=== PATIENT | female | born 1975 | race Caucasian/White ===

== ENCOUNTER 2017-03-16 19:26 | Inpatient (IN) | payer MEDICARE, OTHER ==
[~2017-03-16] VITALS: Ht 152.4 cm; Wt 80.5 kg
[2017-03-16] MEDS ORDERED: ACETAMINOPHEN 325 MG TAB PO ONE ×3 (19:45→22:45)
[2017-03-16 20:22] LABS: CONDITION Y; DEFINITIVE SEE PRINTOUT; Hematocrit 26.5 % (36.0-46.0); Hemoglobin 8.9 g/dL (12.2-16.2); Mean Corpuscular Hemoglobin 29.5 pg (28.0-32.0); Mean Corpuscular Hgb Conc. 33.6 g/dL (32.0-36.0); Mean Corpuscular Volume 87.7 fL (80.0-100.0); Mean Platelet Volume 9.2 fL (7.4-10.4); Platelet Count (auto) 437 10^3/uL (140-450); SUSPECT SEE PRINTOUT
[2017-03-16 20:38] LABS: White Blood Cell 32.5 10^3/uL (4.4-10.8)
[2017-03-16 20:39] LABS: Metamyelocytes % 0; Myelocytes % 0; Promyelocytes % 0; Reactive Lymphocytes 0
[2017-03-16 20:46] LABS: Lactic Acid w/Reflex 2.1 mmol/L (0.4-2.0)
[2017-03-16 21:02] LABS: REFLEX LACTIC ACID YES OR NO YES
[2017-03-16 21:07] LABS: Albumin 2.5 g/dL (3.4-5.0); BUN/Creatinine Ratio 3.4; Calcium 7.8 mg/dL (8.5-10.1); Magnesium 1.8 mg/dL (1.6-2.6); Potassium 3.8 mmol/L (3.5-5.1)
[2017-03-16 21:14] LABS: Bilirubin, Total 0.6 mg/dL (0.2-1.0); Total Protein 7.3 g/dL (6.4-8.2)
[2017-03-16 21:26] LABS: Platelet Estimate Adequate
[2017-03-16] MEDS ORDERED: NITROGLYCERIN 0.4 MG SL TAB SL PRN (23:15)
[2017-03-16] MEDS ORDERED: VANCOMYCIN PER PHARMACY 0 MG IV SCH (23:15)
[2017-03-16] MEDS ORDERED: metroNIDAZOLE 500MG/100ML 100 ML IV ONE (23:15)
[2017-03-16] MEDS ORDERED: ALBUMIN 5% 250 ML IV ONE (23:15)
[2017-03-16] MEDS ORDERED: HYDROcodone-ACET 5/325MG TAB PO PRN (23:15)
[2017-03-16] MEDS ORDERED: MORPHINE SULF INJ 2 MG/ML SYRINGE 1ML IV PRN (23:15)
[2017-03-17] VITALS (8 sets, daily range): BP systolic 99–110; BP diastolic 56–61
[2017-03-17] MEDS ORDERED: VANCOMYCIN 1GM/250ML D5W 250 ML IV ONE
[2017-03-17] MEDS ORDERED: ACET-1156 PO (02:24)
[2017-03-17] MEDS ORDERED: ASPI325T4 PO (02:24)
[2017-03-17] MEDS ORDERED: DOCU-94 PO (02:25)
[2017-03-17] MEDS: ACETAMINOPHEN 325 MG TAB PO PRN (02:59)
[2017-03-17 05:54] LABS: CONDITION Y; DEFINITIVE SEE PRINTOUT; Hematocrit 22.6 % (36.0-46.0); Hemoglobin 7.7 g/dL (12.2-16.2); Mean Corpuscular Hemoglobin 30.1 pg (28.0-32.0); Mean Corpuscular Volume 88.6 fL (80.0-100.0); Mean Platelet Volume 9.5 fL (7.4-10.4); Platelet Count (auto) 373 10^3/uL (140-450); Red Cell Distribution Width 18.2 % (11.6-16.0); SUSPECT SEE PRINTOUT; White Blood Cell 26.5 10^3/uL (4.4-10.8)
[2017-03-17] MEDS: metroNIDAZOLE 500MG/100ML 100 ML IV SCH ×3 (06:08→22:05)
[2017-03-17 06:11] LABS: Albumin 2.5 g/dL (3.4-5.0); Bilirubin, Total 0.5 mg/dL (0.2-1.0); Calcium 8.2 mg/dL (8.5-10.1); Potassium 3.6 mmol/L (3.5-5.1); Total Protein 6.7 g/dL (6.4-8.2)
[2017-03-17 07:24] LABS: Metamyelocytes % 0; Myelocytes % 0; Promyelocytes % 0; Reactive Lymphocytes 0
[2017-03-17] MEDS: SEVELAMER 800 MG TAB PO SCH ×3 (09:03→18:12)
[2017-03-17] MEDS: PANTOPRAZOLE SODIUM 40 MG/10 ML VIAL IV SCH (09:03)
[2017-03-17] MEDS: METOPROLOL TARTRATE 50 MG TAB PO SCH ×2 (09:04→22:05)
[2017-03-17 09:20] LABS: Platelet Estimate Adequate
[2017-03-17] MEDS ORDERED: NIFEdipine ER 30 MG TAB PO SCH (10:00)
[2017-03-17] MEDS ORDERED: hydrALAZINE HCL 25 MG TAB PO SCH (10:00)
[2017-03-17] MEDS ORDERED: ENOXAPARIN SOD 30 MG/0.3 ML SYRINGE SC SCH (10:00)
[2017-03-17] MEDS ORDERED: PIPERACILLIN-TAZOB 2.25GM 50 ML IV ONE (13:30)
[2017-03-17] MEDS: SODIUM CHLORIDE 0.9% 1,000 ML IV SCH (13:30)
[2017-03-17 14:26] LABS: INR 1.15 (0.9-1.15); Partial Thromboplastin Time 30.1 sec (22.64-33.71)
[2017-03-17 14:34] LABS: Prothrombin Time 12.5 sec (9.37-12.3)
[2017-03-17] MEDS: ONDANSETRON HCL 4 MG/2 ML VIAL IV PRN (16:29)
[2017-03-17] MEDS: MORPHINE SULF INJ 2 MG/ML SYRINGE 1ML IV PRN ×2 (16:29→22:16)
[2017-03-17] MEDS: PIPERACILLIN-TAZOB 2.25GM 50 ML IV SCH (22:05)
[2017-03-17 22:27] LABS: Urine Bilirubin Negative (Negative); Urine Blood TRACE /uL (Negative); Urine Color Yellow (Yellow); Urine Glucose Normal (Normal); Urine Ketone Negative (Negative); Urine Mucus FEW (None Seen); Urine Nitrite Negative (Negative); Urine RBC 7 /hpf (0 - 4); Urine Squamous Epithelial Cell MOD /hpf (<5); Urine Urobilinogen Normal (Negative); Urine pH 8.5 (5.0-8.0)
[2017-03-18 05:26] VITALS: BP 103/57
[2017-03-18] MEDS: metroNIDAZOLE 500MG/100ML 100 ML IV SCH (05:32)
[2017-03-18] MEDS: SODIUM CHLORIDE 0.9% 1,000 ML IV SCH ×2 (05:32→22:57)
[2017-03-18 06:20] LABS: CONDITION Y; DEFINITIVE SEE PRINTOUT; Hematocrit 22.3 % (36.0-46.0); Hemoglobin 7.5 g/dL (12.2-16.2); Mean Corpuscular Hemoglobin 29.6 pg (28.0-32.0); Mean Corpuscular Hgb Conc. 33.4 g/dL (32.0-36.0); Mean Corpuscular Volume 88.6 fL (80.0-100.0); Mean Platelet Volume 9.7 fL (7.4-10.4); Platelet Count (auto) 394 10^3/uL (140-450); Red Cell Distribution Width 18.3 % (11.6-16.0); SUSPECT SEE PRINTOUT; White Blood Cell 28.9 10^3/uL (4.4-10.8)
[2017-03-18 06:52] LABS: BUN/Creatinine Ratio 5.3; Calcium 8.3 mg/dL (8.5-10.1); Metamyelocytes % 0; Myelocytes % 0; Potassium 4.1 mmol/L (3.5-5.1); Promyelocytes % 0; Reactive Lymphocytes 0
[2017-03-18 06:53] LABS: Albumin 2.5 g/dL (3.4-5.0); Bilirubin, Total 0.5 mg/dL (0.2-1.0); Total Protein 6.9 g/dL (6.4-8.2)
[2017-03-18] MEDS: SEVELAMER 800 MG TAB PO SCH ×3 (07:39→18:00)
[2017-03-18] MEDS: HEPARIN SODIUM (PORCINE) 5000 UNITS/ML 1ML VIAL SC SCH ×2 (07:40→22:48)
[2017-03-18 09:00] VITALS: BP 110/62
[2017-03-18] MEDS ORDERED: VANCOMYCIN 1GM/250ML D5W 250 ML IV ONE (09:00)
[2017-03-18 09:16] LABS: Platelet Estimate Adequate
[2017-03-18] MEDS: ONDANSETRON HCL 4 MG/2 ML VIAL IV PRN ×3 (09:36→23:12)
[2017-03-18] MEDS: MORPHINE SULF INJ 2 MG/ML SYRINGE 1ML IV PRN ×3 (09:36→22:58)
[2017-03-18] MEDS: METOPROLOL TARTRATE 50 MG TAB PO SCH ×2 (09:47→22:48)
[2017-03-18] MEDS: PANTOPRAZOLE SODIUM 40 MG/10 ML VIAL IV SCH (09:47)
[2017-03-18] MEDS: PIPERACILLIN-TAZOB 2.25GM 50 ML IV SCH ×2 (09:47→22:47)
[2017-03-18] MEDS ORDERED: EPOETIN ALFA 10,000 UNIT/1 ML VIAL IV ONE (10:45)
[2017-03-18] MEDS ORDERED: MIDAZOLAM HCL 1MG/1ML-2 ML VIAL ONE (13:30)
[2017-03-18] MEDS ORDERED: PROPOFOL 10 MG/ML 20 ML IV ONE (13:31)
[2017-03-18] MEDS ORDERED: ROCURONIUM 10MG/ML 10ML VIAL IV ONE (13:31)
[2017-03-18] MEDS ORDERED: fentaNYL CITRATE 100 MCG/2 ML VL ONE (14:02)
[2017-03-18] MEDS ORDERED: METOCLOPRAMIDE HCL 5MG/ml INJ 2ml VIAL ONE (14:24)
[2017-03-18] MEDS ORDERED: DEXAMETHASONE SOD PHOS 10MG/1ML VIAL INJ ONE (14:24)
[2017-03-18] MEDS ORDERED: ONDANSETRON HCL 4 MG/2 ML VIAL ONE (14:24)
[2017-03-18] MEDS ORDERED: hydrALAZINE HCL 20 MG/ML VL IV PRN (14:45)
[2017-03-18] MEDS ORDERED: HYDROmorphone HCL 2 MG/ML VL IV PRN (14:45)
[2017-03-18] MEDS ORDERED: NEOSTIGMINE 1 MG/ML INJ (10mg/10ML VIAL) ONE (14:57)
[2017-03-18] MEDS ORDERED: GLYCOPYRROLATE 0.2 MG/ML 1ML VIAL ONE ×2 (14:57→14:59)
[2017-03-18] MEDS: fentaNYL CITRATE 100 MCG/2 ML VL IV PRN ×4 (15:22→15:57)
[2017-03-18 22:21] VITALS: BP 145/79
[2017-03-19] VITALS (7 sets, daily range): BP systolic 148–170; BP diastolic 92–109
[2017-03-19 06:32] LABS: CONDITION Y; DEFINITIVE SEE PRINTOUT; Hematocrit 22.9 % (36.0-46.0); Hemoglobin 7.7 g/dL (12.2-16.2); Mean Corpuscular Hemoglobin 29.8 pg (28.0-32.0); Mean Corpuscular Hgb Conc. 33.7 g/dL (32.0-36.0); Mean Corpuscular Volume 88.4 fL (80.0-100.0); Mean Platelet Volume 9.9 fL (7.4-10.4); Platelet Count (auto) 338 10^3/uL (140-450); Red Cell Distribution Width 18.3 % (11.6-16.0); SUSPECT SEE PRINTOUT
[2017-03-19 06:45] LABS: Metamyelocytes % 0; Myelocytes % 0; Promyelocytes % 0; Reactive Lymphocytes 0
[2017-03-19 07:27] LABS: Albumin 2.2 g/dL (3.4-5.0); BUN/Creatinine Ratio 6.8; Bilirubin, Total 0.3 mg/dL (0.2-1.0); Calcium 8.5 mg/dL (8.5-10.1); Potassium 5.3 mmol/L (3.5-5.1); Total Protein 6.9 g/dL (6.4-8.2)
[2017-03-19] MEDS: SEVELAMER 800 MG TAB PO SCH ×3 (08:00→18:00)
[2017-03-19] MEDS ORDERED: EPOETIN ALFA 10,000 UNIT/1 ML VIAL IV ONE (08:00)
[2017-03-19 08:21] LABS: Platelet Estimate Adequate
[2017-03-19 08:22] LABS: Anisocytosis Slight; Burr Cells FEW; Ovalocytes FEW
[2017-03-19] MEDS: HEPARIN SODIUM (PORCINE) 5000 UNITS/ML 1ML VIAL SC SCH ×2 (10:00→22:17)
[2017-03-19] MEDS: PIPERACILLIN-TAZOB 2.25GM 50 ML IV SCH ×2 (11:08→22:15)
[2017-03-19] MEDS: PANTOPRAZOLE SODIUM 40 MG/10 ML VIAL IV SCH (13:42)
[2017-03-19] MEDS: METOPROLOL TARTRATE 50 MG TAB PO SCH ×2 (13:42→22:16)
[2017-03-19] MEDS: MORPHINE SULF INJ 2 MG/ML SYRINGE 1ML IV PRN (19:23)
[2017-03-19] MEDS ORDERED: VANCOMYCIN 1,250 MG in D5W 5% 250 ML IV ONE (20:00)
[2017-03-19] MEDS: ONDANSETRON HCL 4 MG/2 ML VIAL IV PRN (22:16)
[2017-03-20 05:16] VITALS: BP 155/97
[2017-03-20 05:43] LABS: CONDITION Y; DEFINITIVE SEE PRINTOUT; Hematocrit 23.4 % (36.0-46.0); Hemoglobin 7.8 g/dL (12.2-16.2); Mean Corpuscular Hemoglobin 29.2 pg (28.0-32.0); Mean Corpuscular Hgb Conc. 33.3 g/dL (32.0-36.0); Mean Corpuscular Volume 87.8 fL (80.0-100.0); Mean Platelet Volume 9.4 fL (7.4-10.4); Platelet Count (auto) 429 10^3/uL (140-450); SUSPECT SEE PRINTOUT; White Blood Cell 18.4 10^3/uL (4.4-10.8)
[2017-03-20 05:58] LABS: Calcium 8.4 mg/dL (8.5-10.1)
[2017-03-20 06:00] LABS: Myelocytes % 0; Promyelocytes % 0; Reactive Lymphocytes 0
[2017-03-20 06:21] LABS: BUN/Creatinine Ratio 7.9
[2017-03-20 06:26] LABS: Anisocytosis Slight; Metamyelocytes % 1; Platelet Estimate Adequate
[2017-03-20] MEDS: PIPERACILLIN-TAZOB 2.25GM 50 ML IV SCH ×2 (09:00→21:23)
[2017-03-20] MEDS: SEVELAMER 800 MG TAB PO SCH (09:00)
[2017-03-20] MEDS: PANTOPRAZOLE SODIUM 40 MG/10 ML VIAL IV SCH (09:00)
[2017-03-20] MEDS: METOPROLOL TARTRATE 50 MG TAB PO SCH ×2 (09:01→22:32)
[2017-03-20] MEDS: HEPARIN SODIUM (PORCINE) 5000 UNITS/ML 1ML VIAL SC SCH ×2 (09:07→21:27)
[2017-03-20] MEDS ORDERED: CLON0.3T PO (09:23)
[2017-03-20] MEDS ORDERED: LOSA50TA6 PO (09:23)
[2017-03-20] MEDS ORDERED: NIFE90TA30 PO (09:23)
[2017-03-20 09:53] VITALS: BP 164/104
[2017-03-20] MEDS ORDERED: cloNIDine HCL 0.1 MG TAB PO PRN ×2 (10:45)
[2017-03-20] MEDS: NIFEdipine ER 30 MG TAB PO SCH (11:37)
[2017-03-20] MEDS: ONDANSETRON HCL 4 MG/2 ML VIAL IV PRN (11:40)
[2017-03-20 14:19] VITALS: BP 148/92
[2017-03-20] MEDS: ACETAMINOPHEN 325 MG TAB PO SCH ×2 (15:38→21:23)
[2017-03-20 17:11] VITALS: BP 146/89
[2017-03-20 20:00] VITALS: BP 124/70
[2017-03-20 22:00] VITALS: BP 124/70
[2017-03-21] VITALS (7 sets, daily range): BP systolic 121–158; BP diastolic 62–84
[2017-03-21] MEDS: ACETAMINOPHEN 325 MG TAB PO SCH ×4 (05:49→21:36)
[2017-03-21 06:27] LABS: CONDITION Y; DEFINITIVE SEE PRINTOUT; Hematocrit 21.3 % (36.0-46.0); Hemoglobin 7.2 g/dL (12.2-16.2); Mean Corpuscular Hemoglobin 29.4 pg (28.0-32.0); Mean Corpuscular Hgb Conc. 33.8 g/dL (32.0-36.0); Platelet Count (auto) 362 10^3/uL (140-450); Red Cell Distribution Width 17.9 % (11.6-16.0); SUSPECT SEE PRINTOUT
[2017-03-21 06:32] LABS: Promyelocytes % 0; Reactive Lymphocytes 0
[2017-03-21 08:47] LABS: Metamyelocytes % 1; Myelocytes % 1; Platelet Estimate Adequate
[2017-03-21 08:49] LABS: Anisocytosis Slight; Large Platelets FEW
[2017-03-21] MEDS ORDERED: EPOETIN ALFA 10,000 UNIT/1 ML VIAL IV ONE (09:30)
[2017-03-21] MEDS ORDERED: HEPARIN 1,000 UNITS/ml 1ML VIAL IV ONE (09:30)
[2017-03-21 11:57] LABS: Phosphorus 3.1 mg/dL (2.5-4.90); Uric Acid 6.1 mg/dL (2.6-6.0)
[2017-03-21] MEDS: PIPERACILLIN-TAZOB 2.25GM 50 ML IV SCH ×2 (12:12→21:38)
[2017-03-21] MEDS: PANTOPRAZOLE SODIUM 40 MG/10 ML VIAL IV SCH (12:12)
[2017-03-21] MEDS: NIFEdipine ER 30 MG TAB PO SCH (12:13)
[2017-03-21] MEDS: METOPROLOL TARTRATE 50 MG TAB PO SCH ×2 (12:14→21:38)
[2017-03-21] MEDS: HEPARIN SODIUM (PORCINE) 5000 UNITS/ML 1ML VIAL SC SCH ×2 (12:28→21:31)
[2017-03-21] MEDS: PRO-STAT 64 30ML PO SCH (21:57)
[2017-03-22] VITALS (7 sets, daily range): BP systolic 122–159; BP diastolic 69–93
[2017-03-22] MEDS: ACETAMINOPHEN 325 MG TAB PO SCH ×4 (05:52→21:27)
[2017-03-22] MEDS: PRO-STAT 64 30ML PO SCH ×3 (06:00→21:34)
[2017-03-22 06:25] LABS: CONDITION Y; DEFINITIVE SEE PRINTOUT; Hematocrit 22.3 % (36.0-46.0); Hemoglobin 7.6 g/dL (12.2-16.2); Mean Corpuscular Hemoglobin 29.6 pg (28.0-32.0); Mean Corpuscular Hgb Conc. 34.2 g/dL (32.0-36.0); Mean Corpuscular Volume 86.6 fL (80.0-100.0); Mean Platelet Volume 9.1 fL (7.4-10.4); Platelet Count (auto) 419 10^3/uL (140-450); Red Cell Distribution Width 17.6 % (11.6-16.0); SUSPECT SEE PRINTOUT; White Blood Cell 16.3 10^3/uL (4.4-10.8)
[2017-03-22 06:37] LABS: Promyelocytes % 0; Reactive Lymphocytes 0
[2017-03-22 08:33] LABS: Metamyelocytes % 2; Myelocytes % 1; Platelet Estimate Adequate
[2017-03-22 08:34] LABS: Anisocytosis Slight; Large Platelets FEW
[2017-03-22] MEDS: PANTOPRAZOLE SODIUM 40 MG/10 ML VIAL IV SCH (10:14)
[2017-03-22] MEDS: HEPARIN SODIUM (PORCINE) 5000 UNITS/ML 1ML VIAL SC SCH ×2 (10:15→21:36)
[2017-03-22] MEDS: PIPERACILLIN-TAZOB 2.25GM 50 ML IV SCH ×2 (10:16→21:26)
[2017-03-22] MEDS: METOPROLOL TARTRATE 50 MG TAB PO SCH ×2 (10:17→21:25)
[2017-03-22] MEDS: NIFEdipine ER 30 MG TAB PO SCH (10:17)
[2017-03-22] MEDS ORDERED: DOCUSATE SOD 100 MG CAP PO PRN (15:00)
[2017-03-23 05:00] VITALS: BP 148/91
[2017-03-23 05:29] LABS: CONDITION Y; DEFINITIVE SEE PRINTOUT; Hematocrit 22.5 % (36.0-46.0); Hemoglobin 7.5 g/dL (12.2-16.2); Mean Corpuscular Hgb Conc. 33.1 g/dL (32.0-36.0); Mean Corpuscular Volume 87.6 fL (80.0-100.0); Mean Platelet Volume 9.1 fL (7.4-10.4); Platelet Count (auto) 477 10^3/uL (140-450); Red Cell Distribution Width 18.7 % (11.6-16.0); SUSPECT SEE PRINTOUT; White Blood Cell 16.3 10^3/uL (4.4-10.8)
[2017-03-23 05:37] LABS: Metamyelocytes % 0; Myelocytes % 0; Promyelocytes % 0; Reactive Lymphocytes 0
[2017-03-23] MEDS: PRO-STAT 64 30ML PO SCH ×3 (05:48→22:02)
[2017-03-23] MEDS: ACETAMINOPHEN 325 MG TAB PO SCH ×3 (06:02→22:01)
[2017-03-23 06:09] LABS: Platelet Estimate Increased
[2017-03-23 06:10] LABS: Anisocytosis Slight
[2017-03-23 08:00] VITALS: BP 155/86
[2017-03-23 08:02] LABS: Albumin 2.2 g/dL (3.4-5.0); BUN/Creatinine Ratio 6.2; Bilirubin, Total 0.3 mg/dL (0.2-1.0); Calcium 8.1 mg/dL (8.5-10.1); Potassium 4.1 mmol/L (3.5-5.1); Total Protein 6.6 g/dL (6.4-8.2)
[2017-03-23 09:00] VITALS: BP 155/66
[2017-03-23] MEDS: HEPARIN SODIUM (PORCINE) 5000 UNITS/ML 1ML VIAL SC SCH ×2 (09:42→22:10)
[2017-03-23] MEDS: PIPERACILLIN-TAZOB 2.25GM 50 ML IV SCH ×2 (09:43→22:02)
[2017-03-23] MEDS: PANTOPRAZOLE SODIUM 40 MG/10 ML VIAL IV SCH (09:43)
[2017-03-23] MEDS: NIFEdipine ER 30 MG TAB PO SCH (09:44)
[2017-03-23] MEDS: METOPROLOL TARTRATE 50 MG TAB PO SCH ×2 (09:44→22:11)
[2017-03-23] MEDS ORDERED: EPOETIN ALFA 10,000 UNIT/1 ML VIAL IV ONE (10:45)
[2017-03-23] MEDS ORDERED: SODIUM CHL 0.9% 1000 ML BAG XX ONE (10:45)
[2017-03-23 17:00] VITALS: BP 140/84
[2017-03-23 22:00] VITALS: BP 151/90
[2017-03-24 04:43] VITALS: BP 156/90
[2017-03-24] MEDS: ACETAMINOPHEN 325 MG TAB PO SCH ×3 (05:59→22:29)
[2017-03-24] MEDS: PRO-STAT 64 30ML PO SCH ×3 (05:59→22:26)
[2017-03-24 07:01] LABS: CONDITION Y; DEFINITIVE SEE PRINTOUT; Hematocrit 22.9 % (36.0-46.0); Hemoglobin 7.6 g/dL (12.2-16.2); Mean Corpuscular Hemoglobin 28.9 pg (28.0-32.0); Mean Corpuscular Hgb Conc. 33.3 g/dL (32.0-36.0); Mean Corpuscular Volume 86.8 fL (80.0-100.0); Platelet Count (auto) 622 10^3/uL (140-450); Red Cell Distribution Width 18.5 % (11.6-16.0); SUSPECT SEE PRINTOUT; White Blood Cell 17.5 10^3/uL (4.4-10.8)
[2017-03-24 07:12] LABS: Promyelocytes % 0; Reactive Lymphocytes 0
[2017-03-24 08:09] LABS: Giant Platelets Few; Large Platelets FEW; Platelet Clumps FEW; Platelet Estimate Increased
[2017-03-24 08:11] LABS: Metamyelocytes % 1; Myelocytes % 1
[2017-03-24 08:12] LABS: Hypochromia Slight
[2017-03-24 09:00] VITALS: BP 160/98
[2017-03-24] MEDS ORDERED: SODIUM CHL 0.9% 1000 ML BAG XX ONE (09:00)
[2017-03-24] MEDS ORDERED: EPOETIN ALFA 10,000 UNIT/1 ML VIAL IV ONE (09:00)
[2017-03-24] MEDS ORDERED: MORPHINE SULF INJ 2 MG/ML SYRINGE 1ML IV PRN (09:30)
[2017-03-24] MEDS ORDERED: HYDROcodone-ACET 5/325MG TAB PO PRN (09:30)
[2017-03-24] MEDS: NIFEdipine ER 30 MG TAB PO SCH ×2 (10:00→13:17)
[2017-03-24] MEDS: METOPROLOL TARTRATE 50 MG TAB PO SCH ×4 (10:00→22:26)
[2017-03-24] MEDS: HEPARIN SODIUM (PORCINE) 5000 UNITS/ML 1ML VIAL SC SCH ×2 (10:00→22:28)
[2017-03-24] MEDS: PIPERACILLIN-TAZOB 2.25GM 50 ML IV SCH ×2 (10:37→22:31)
[2017-03-24 13:00] VITALS: BP 155/92
[2017-03-24] MEDS: PANTOPRAZOLE SODIUM 40 MG/10 ML VIAL IV SCH (13:18)
[2017-03-24] MEDS ORDERED: metroNIDAZOLE 500MG/100ML 100 ML IV ONE (13:30)
[2017-03-24 15:09] VITALS: BP 160/95
[2017-03-24 17:00] VITALS: BP 179/101
[2017-03-24 22:00] VITALS: BP 128/80
[2017-03-24] MEDS ORDERED: METOPROLOL TARTRATE 50 MG TAB PO ONE (22:30)
[2017-03-24] MEDS: metroNIDAZOLE 500MG/100ML 100 ML IV SCH (22:34)
[2017-03-25] MEDS: metroNIDAZOLE 500MG/100ML 100 ML IV SCH ×2 (04:20→09:59)
[2017-03-25 05:00] VITALS: BP 151/87
[2017-03-25] MEDS: ACETAMINOPHEN 325 MG TAB PO SCH (06:49)
[2017-03-25] MEDS: PRO-STAT 64 30ML PO SCH (06:50)
[2017-03-25 07:28] LABS: Basophils # (auto) 0 uL; Basophils % (auto) 0.1 % (0.0-2.0); CONDITION Y; DEFINITIVE SEE PRINTOUT; Eosinophils # (auto) 0.3 uL; Eosinophils % (auto) 2.4 % (0.0-7.0); Hematocrit 22.2 % (36.0-46.0); Hemoglobin 7.4 g/dL (12.2-16.2); Lymphocytes # (auto) 1.4 uL; Lymphocytes % (auto) 9.4 % (10.0-50.0); Mean Corpuscular Hemoglobin 29.2 pg (28.0-32.0); Mean Corpuscular Hgb Conc. 33.4 g/dL (32.0-36.0); Mean Corpuscular Volume 87.6 fL (80.0-100.0); Mean Platelet Volume 8.8 fL (7.4-10.4); Monocytes # (auto) 0.8 uL; Monocytes % (auto) 5.5 % (0.0-12.0); Neutrophils # (auto) 11.9 uL; Neutrophils % (auto) 82.6 % (37.0-80.0); Platelet Count (auto) 632 10^3/uL (140-450); Red Cell Distribution Width 18.8 % (11.6-16.0); White Blood Cell 14.4 10^3/uL (4.4-10.8)
[2017-03-25 07:44] LABS: BUN/Creatinine Ratio 5.1; Calcium 8.3 mg/dL (8.5-10.1); Potassium 3.6 mmol/L (3.5-5.1)
[2017-03-25 08:07] LABS: Vitamin D-2 25-Hydroxy 2.3 ng/mL (.)
[2017-03-25 09:00] VITALS: BP 152/94
[2017-03-25] MEDS: PANTOPRAZOLE SODIUM 40 MG/10 ML VIAL IV SCH (09:57)
[2017-03-25] MEDS: PIPERACILLIN-TAZOB 2.25GM 50 ML IV SCH (09:58)
[2017-03-25] MEDS ORDERED: METOPROLOL TARTRATE 50 MG TAB PO SCH (10:00)
[2017-03-25] MEDS: HEPARIN SODIUM (PORCINE) 5000 UNITS/ML 1ML VIAL SC SCH (10:09)
[2017-03-25] MEDS ORDERED: EPOETIN ALFA 10,000 UNIT/1 ML VIAL IV ONE (11:15)
[2017-03-25] MEDS ORDERED: SODIUM CHL 0.9% 1000 ML BAG XX ONE (11:15)
[2017-03-25] MEDS: NIFEdipine ER 30 MG TAB PO SCH (11:18)
[2017-03-25] MEDS: ACETAMINOPHEN 325 MG TAB PO PRN (11:20)
[2017-03-25] MEDS ORDERED: DOCU100C8 PO (13:29)
[2017-03-25] MEDS ORDERED: LEVO500T21 PO (13:29)
[2017-03-25] MEDS ORDERED: METR500T PO (13:29)
[2017-03-25 13:32] VITALS: BP 145/89
== END 2017-03-25 15:34 | disposition home health service (06) | DRG 907 ==
LOC: EDBD 19:26 → ER 19:28 → TELE 19:29 → TELE-WESTW 03-17 00:27
PROVIDERS: ADMIT Internal Medicine; ATTEND Internal Medicine
PROC: 5A1D60Z (ICD-10-PCS; 2017-03-16)
PROC: 02HV33Z Insertion of Infusion Device into Superior Vena Cava, Percutaneous Approach (ICD-10-PCS; 2017-03-16)
PROC: 0WCG0ZZ Extirpation of Matter from Peritoneal Cavity, Open Approach (ICD-10-PCS; 2017-03-18)
PROC: 0D9W0ZX Drainage of Peritoneum, Open Approach, Diagnostic (ICD-10-PCS; 2017-03-18)
PROC: 0WPG03Z Removal of Infusion Device from Peritoneal Cavity, Open Approach (ICD-10-PCS; principal; 2017-03-18 13:26)
PROC: 0D9W0ZZ Drainage of Peritoneum, Open Approach (ICD-10-PCS; 2017-03-18 13:26)
DX: T85.71XA Infection and inflammatory reaction due to peritoneal dialysis catheter, initial encounter (principal); A41.9 Sepsis, unspecified organism; N18.6 End stage renal disease; E43 Unspecified severe protein-calorie malnutrition; K68.19 Other retroperitoneal abscess; I12.0 Hypertensive chronic kidney disease with stage 5 chronic kidney disease or end stage renal disease; K56.7 Ileus, unspecified; N25.81 Secondary hyperparathyroidism of renal origin; K66.0 Peritoneal adhesions (postprocedural) (postinfection); D63.8 Anemia in other chronic diseases classified elsewhere; N94.89 Other specified conditions associated with female genital organs and menstrual cycle; I25.10 Atherosclerotic heart disease of native coronary artery without angina pectoris; M47.9 Spondylosis, unspecified; N73.9 Female pelvic inflammatory disease, unspecified; Y83.9 Surgical procedure, unspecified as the cause of abnormal reaction of the patient, or of later complication, without mention of misadventure at the time of the procedure; Z82.3 Family history of stroke; Z86.73 Personal history of transient ischemic attack (TIA), and cerebral infarction without residual deficits; Z99.2 Dependence on renal dialysis; Z88.1 Allergy status to other antibiotic agents; Z88.0 Allergy status to penicillin; I25.2 Old myocardial infarction; Z68.34 Body mass index [BMI] 34.0-34.9, adult; Z80.9 Family history of malignant neoplasm, unspecified
CPT/HCPCS: 36415; 71010; 71250; 74176; 80048; 80053; 80202; 81001; 82306; 82728; 83540; 83550; 83605; 83735; 83970; 84100; 84550; 84702; 85007; 85025; 85027; 85610; 85730; 86850; 86900; 86901; 87040; 87070; 87075; 87076; 87086; 87493; 88300; 88304; 90935; 93005; 94761; 96374; 96375; 97116; 97163; 97530; C9113; J0885; J1100; J1642; J2250; J2405; J2543; J2704; J3490; J7060